=== PATIENT | female | born 1960 | race Caucasian/White ===

== ENCOUNTER 2018-11-28 18:11 | Emergency (ER) | payer OTHER ==
[~2018-11-28] VITALS: Ht 172.7 cm; Wt 80.3 kg
[2018-11-28] MEDS ORDERED: PRED20 PO (18:18)
[2018-11-28] MEDS ORDERED: EPIPEN 2-P0.3 MG/0.3 IM (18:23)
[2018-11-28] MEDS ORDERED: Prednisone20 MG PO (18:23)
== END 2018-11-28 20:01 | disposition home or self-care (01) ==
LOC: ER 18:11
DX: L50.0 Allergic urticaria (principal); J45.909 Unspecified asthma, uncomplicated; Z91.018 Allergy to other foods; Z79.52 Long term (current) use of systemic steroids
CPT/HCPCS: 99283; J1100